=== PATIENT | female | born 1950 | race Caucasian/White ===

== ENCOUNTER 2018-01-15 10:15 | Outpatient (RCR) | payer MEDICARE, OTHER ==
[~2018-01-15 10:15] MED LIST: CALCIUM CARBONATE; COZAAR100 MG PO; LUTEIN PO; MULTIPLE VITAMI1 CAP PO; MURO-128 5% OP3.5 GM OP; PRAVACHOL 40MG40 MG PO; PRILOSEC 20MG20 MG PO; TOPROL XL 25MG25 MG PO; TYLENOL 8 HR PO
== END 2018-01-22 15:31 | disposition home or self-care (01) ==
LOC: MKS.ESL.PT 10:15
DX: M25.511 Pain in right shoulder (principal); G89.29 Other chronic pain
CPT/HCPCS: G8978-GP; G8979-GP; G8980-GP

== ENCOUNTER 2018-12-13 13:00 | Outpatient (RCR) | payer MEDICARE, OTHER | END 2019-02-17 | disposition home or self-care (01) | LOC: MKS.ESL.PT | DX: M54.5 Low back pain (principal); Z79.899 Other long term (current) drug therapy ==

== ENCOUNTER → 2019-03-31 | Outpatient (CLI) | payer MEDICARE, OTHER | LOC: MC.RAD 03-04 15:45 | DX: Z12.31 Encounter for screening mammogram for malignant neoplasm of breast (principal) ==

== ENCOUNTER → 2021-03-18 | Outpatient (CLI) | payer MEDICARE, OTHER | LOC: MC.RAD 14:05 | DX: Z12.31 Encounter for screening mammogram for malignant neoplasm of breast (principal) ==

== ENCOUNTER 2023-08-07 10:30 | Outpatient (RCR) | payer MEDICARE, OTHER, BC | END 2023-08-11 | disposition home or self-care (01) | LOC: WSPT | DX: M25.561 Pain in right knee (principal); M25.562 Pain in left knee ==

== ENCOUNTER → 2023-09-07 | Outpatient (CLI) | payer MEDICARE, OTHER | LOC: CANPRECLI → MC.RAD 11:24 | DX: Z12.31 Encounter for screening mammogram for malignant neoplasm of breast (principal) ==